=== PATIENT | male | born 1990 | race Two or more races ===

== ENCOUNTER 2020-04-30 14:02 | Emergency (ER) | payer OTHER ==
[~2020-04-30] VITALS: Ht 185.4 cm; Wt 111.5 kg
[2020-04-30 14:13] VITALS: BP 137/85
[2020-04-30] MEDS ORDERED: OXYcodone/APAP 5/325MG TABLET PO ONE (14:30)
[2020-04-30] MEDS ORDERED: OXYcodone/APAP 5/325MG TABLET ONE (14:30)
--- NOTE | 2020-04-30 14:36 | NUR ---
PT TO ROOM 4 W/ C/O L ANKLE PAIN AFTER PT STATES HE WAS ATTEMPTING TO GET OUT OF FORKLIFT TRACTOR AND TWISTED HIS ANKLE BETWEEN THE FORKS AND THE PAVERS ON A PALLET. CMS INTACT. PT RESTING ON [employer]. MEDICATED PER OCT.
== END 2020-04-30 16:02 | disposition home or self-care (01) ==
LOC: ED 15:15
DX: S82.52XA Displaced fracture of medial malleolus of left tibia, initial encounter for closed fracture (principal); X50.1XXA Overexertion from prolonged static or awkward postures, initial encounter; Y93.89 Activity, other specified; Y92.69 Other specified industrial and construction area as the place of occurrence of the external cause; Y99.0 Civilian activity done for income or pay
CPT/HCPCS: 29515; 99284